=== PATIENT | male | born 1995 | race African-American/Black ===

== ENCOUNTER 2023-01-14 08:49 | Emergency (ER) | payer SELFPAY ==
[~2023-01-14] VITALS: Ht 180.3 cm; Wt 69.0 kg
[2023-01-14 09:03] VITALS: O2SAT 100
[2023-01-14] MEDS ORDERED: HYDR453.4 TP (09:47)
[2023-01-14 10:28] VITALS: BP 117/83; PULSE 80; RESP 18; TEMP 98.8
== END 2023-01-14 10:30 | disposition home or self-care (01) ==
LOC: ER 08:49
DX: L30.9 Dermatitis, unspecified (principal); J45.909 Unspecified asthma, uncomplicated
CPT/HCPCS: 99282